=== PATIENT | female | born 1990 | race African-American/Black ===

== ENCOUNTER 2021-03-26 10:29 | Emergency (ER) | payer SELFPAY ==
[2021-03-26 10:36] VITALS: BP 115/75; PULSE 90; TEMP 97; BMI 31.8
[2021-03-26] MEDS ORDERED: ACETAMINOPHEN WITH CODEINE 300MG/30MG TABLET PO ONE (11:18)
[2021-03-26] MEDS ORDERED: ACETAMINOPHEN WITH CODEINE 300MG/30MG TABLET ONE (11:29)
[2021-03-26 12:17] LABS: URINE APPEARANCE CLEAR; URINE BILIRUBIN NEGATIVE (NEGATIVE); URINE COLOR YELLOW; URINE GLUCOSE (UA) NEGATIVE (NEGATIVE); URINE KETONE NEGATIVE (NEGATIVE); URINE LEUK ESTERASE NEGATIVE (NEGATIVE); URINE NITRITE NEGATIVE (NEGATIVE); URINE PROTEIN NEGATIVE (NEGATIVE); URINE UROBILINOGEN 0.2 mg/dL (0.2-1.0)
== END 2021-03-26 13:12 | disposition home or self-care (01) ==
LOC: JER 10:29
DX: R05 Cough (principal)
CPT/HCPCS: 71046-TC-FY; 81003; 84703; 87086; 99284-25